=== PATIENT | male | born 1965 | race Caucasian/White ===

== ENCOUNTER 2023-12-04 08:10 | Outpatient (OUT) | payer SELFPAY ==
--- NOTE | 2023-12-04 | XR_ITS ---
[address] [address] Patient Name: OSCAR PICKERING MRN: [id number] date: 1965 Sex: M Assigned Patient Location: [facility] Current Patient Location: Accession/Order Number: [id number] Exam Date: 12/04/2023 08:13 Report Date: 12/09/2023 07:29 At the request of: SERG PACHECO Procedure: XR ankle RT min 3V PROCEDURE: XR ankle RT min 3V COMPARISON: None. HISTORY: RIGHT ANKLE PAIN FINDINGS: BONES:No acute fracture or dislocation. Mild degenerative changes. Moderate enthesopathic spurring of the calcaneus at the Achilles and plantar insertions SOFT TISSUES:Soft tissue prominence in the region of the Achilles tendon EFFUSION:None visible. OTHER: Negative. XR/XR ankle RT min 3V IMPRESSION: Suspected Achilles tendon enlargement/pathology Electronically authenticated by: KARLEY MACHUCA Date: 12/09/2023 07:29
== END 2023-12-04 08:11 | disposition home or self-care (01) ==
LOC: RAD 08:10
PROVIDERS: PCP Family Medicine; Visit Provider Podiatrist Foot & Ankle Surgery
DX: M25.571 Pain in right ankle and joints of right foot (principal)
CPT/HCPCS: 73610